=== PATIENT | male | born 1995 | race Caucasian/White ===

== ENCOUNTER 2018-09-04 15:53 | Emergency (ER) | payer BC ==
--- NOTE | 2018-09-04 16:34 | EDM.PDOC ---
ED HPI GENERAL MEDICAL PROBLEM - General Chief Complaint: ENT Problem Stated Complaint: LEFT EAR PAIN Time Seen by Provider: 09/04/18 15:56 Source of Information: Reports: Patient History Limitations: Reports: No Limitations - History of Present Illness INITIAL COMMENTS - FREE TEXT/NARRATIVE: 23 y.o.w.m came to the ed due to left ear pain since this am. No trauma to his ear, did not use q-tips, did not take a bath etc. Never had an ear infection in the past. possible mid decreased hearing left ear. No N/V/D or dizziness, no other acute medical issues. BP 143/91 RR 18 Pulse ox 100% on RA Temp 36.9 Pulse 81 Onset Date: 09/04/18 Onset Time: 07:00 Duration: Hour(s):, Getting Worse, Intermittent Location: Reports: Face (left ear. ) Quality: Reports: Ache, Burning, Dull Severity: Moderate Improves with: Reports: Rest Worsens with: Reports: Movement Context: Reports: Other Associated Symptoms: Reports: No Other Symptoms L ear Pain Score (Numeric/FACES): 4 - Related Data Allergies Allergy/AdvReac Type Severity Reaction Status Date / Time amoxicillin Allergy Cannot Verified 09/04/18 16:02 Remember azithromycin [From Zithromax] Allergy Vomiting Verified 09/04/18 16:02 clavulanic acid Allergy Cannot Verified 09/04/18 16:02 [From Augmentin] Remember Home Meds: Home Meds FLUoxetine HCl [Fluoxetine HCl] 40 mg BEDTIME 09/04/18 [History] Hydrocort/Neomycin/Polymyxin B [Cortisporin Otic Soln] 0.01 ml .XX Q8HR #1 bottle 09/04/18 [Rx] Hydroxychloroquine [Plaquenil] 400 mg PO DAILY 09/04/18 [History] Naproxen Sodium 440 mg PO DAILY 09/04/18 [History] Omeprazole 20 mg DAILY 09/04/18 [History] Sulfamethoxazole/Trimethoprim [Bactrim Ds Tablet] 1 each PO BID #20 tablet 09/04 [Rx] Past Medical History Respiratory History: Reports: Pneumonia, Recurrent Gastrointestinal History: Reports: GERD Musculoskeletal History: Reports: Arthritis, RA, Other (See Below) Other Musculoskeletal History: mixed connective tissue disease Psychiatric History: Reports: Anxiety, Depression Endocrine/Metabolic History: Reports: Obesity/BMI 30+ Immunologic History: Reports: Other (See Below) Other Immunologic History: mixed connective tissue disease Dermatologic History: Reports: Other (See Below) Other Dermatologic History: mixed connective tissue disease - Past Surgical History Musculoskeletal Surgical History: Reports: None Social & Family History - Family History Family Medical History: Noncontributory - Tobacco Use Smoking Status *Q: Never Smoker - Caffeine Use Caffeine Use: Reports: Soda - Recreational Drug Use Recreational Drug Use: Yes ED ROS ENT - Review of Systems Review Of Systems: See Below Constitutional: Reports: No Symptoms HEENT: Reports: Ear Pain Respiratory: Reports: No Symptoms Cardiovascular: Reports: No Symptoms Endocrine: Reports: No Symptoms GI/Abdominal: Reports: No Symptoms : Reports: No Symptoms Musculoskeletal: Reports: No Symptoms Skin: Reports: No Symptoms Neurological: Reports: No Symptoms Psychiatric: Reports: No Symptoms Hematologic/Lymphatic: Reports: No Symptoms Immunologic: Reports: No Symptoms ED EXAM, ENT - Physical Exam Exam: See Below Exam Limited By: No Limitations General Appearance: Alert, WD/WN, Mild Distress Eye Exam: Bilateral Eye: Normal Inspection Ears: Normal External Exam, Normal Canal, Hearing Grossly Normal, TM Bulging, TM Dullness, TM Erythema, TM Fluid Nose: Normal Inspection, Normal Mucousa, No Blood Mouth/Throat: Normal Inspection, Normal Gums, Normal Lips, Normal Oropharynx, Normal Teeth Head: Atraumatic, Normocephalic Neck: Normal Inspection, Supple, Non-Tender, Full Range of Motion Respiratory/Chest: No Respiratory Distress, Lungs Clear, Normal Breath Sounds, No Accessory Muscle Use, Chest Non-Tender Cardiovascular: Normal Peripheral Pulses, Regular Rate, Rhythm, No Edema, No Gallop, No JVD, No Murmur, No Rub GI/Abdominal: Normal Bowel Sounds, Soft, Non-Tender, No Organomegaly, No Distention, No Abnormal Bruit, No Mass, Pelvis Stable (Male) Exam: Deferred Rectal (Males) Exam: Deferred Back: Normal Inspection, Full Range of Motion Extremities: Normal Inspection, Normal Range of Motion, Non-Tender, No Pedal Edema, Normal Capillary Refill Neurological: Alert, Oriented, CN II-XII Intact, Normal Cognition, Normal Gait Psychiatric: Normal Affect, Normal Mood Skin: Warm, Dry, Intact, Normal Color, Other (left ear OM/OE) Lymphatic: No Adenopathy Course - Vital Signs Text/Narrative:: 23 y.o.w.m came to the ed due to left ear pain since this am. No trauma to his ear, did not use q-tips, did not take a bath etc. Never had an ear infection in the past. possible mid decreased hearing left ear. No N/V/D or dizziness, no other acute medical issues. BP 143/91 RR 18 Pulse ox 100% on RA Temp 36.9 Pulse 81 PE: WNWD W M with left ear pain, OM/OE Impression: OM/OE left ear Tx: Prescription fro Bactrim and Cortisporin ear drops Reexam: Pt was stable in the ed Plan: D/C with instructions Last Recorded V/S: Last Vital Signs Temp 36.5 C 09/04/18 15:56 Pulse 81 09/04/18 15:56 Resp 18 09/04/18 15:56 BP 143/91 H 09/04/18 15:56 Pulse Ox 100 09/04/18 15:56 Departure - Departure Time of Disposition: 16:31 Disposition: Home, Self-Care 01 Condition: Good Clinical Impression: Otitis media Qualifiers: Chronicity: acute Laterality: left Recurrence: non-recurrent Spontaneous tympanic membrane rupture: without spontaneous rupture - Discharge Information Prescriptions: Hydrocort/Neomycin/Polymyxin B [Cortisporin Otic Soln] 0.01 ml .XX Q8HR #1 bottle Sulfamethoxazole/Trimethoprim [Bactrim Ds Tablet] 1 each PO BID #20 tablet Instructions: Otitis Externa, [id number] Referrals: PCP,None [Primary Care Provider] - Forms: ED Department Discharge Additional Instructions: Please take the Antibiotic as recommended. Please take Motrin for pain as needed , please follow up, come back if your symptom get worse acutely.
== END 2018-09-04 16:49 | disposition home or self-care (01) ==
LOC: FB.ED 15:53
DX: H66.92 Otitis media, unspecified, left ear (principal); K21.9 Gastro-esophageal reflux disease without esophagitis; M06.9 Rheumatoid arthritis, unspecified; E66.9 Obesity, unspecified; Z88.1 Allergy status to other antibiotic agents; Z79.899 Other long term (current) drug therapy
CPT/HCPCS: 99282